=== PATIENT | male | born 2000 | race Caucasian/White ===

== ENCOUNTER 2021-10-26 22:27 | Emergency (ER) | payer BC ==
[2021-10-26] MEDS ORDERED: diphenhydrAMINE 50 MG/ML VIAL ONE (22:37)
[2021-10-26] MEDS ORDERED: Famotidine/PF 20 mg/2ml Vial ONE (22:37)
[2021-10-26] MEDS ORDERED: methylPREDNISolone Sod Succ/PF 125 MG/2 ML VIAL ONE (22:37)
== END 2021-10-26 23:40 | disposition home or self-care (01) ==
LOC: CSHERS 22:27
DX: L50.0 Allergic urticaria (principal)
CPT/HCPCS: 71045; 93005; 96374; 96375; J1200; J2930; S0028